=== PATIENT | male | born 1975 | race Caucasian/White ===

== ENCOUNTER 2016-09-27 04:40 | Emergency (ER) | payer MEDICAID, OTHER ==
[~2016-09-27] VITALS: Ht 167.6 cm; Wt 98.0 kg
[2016-09-27 04:44] VITALS: Ht 167.6 cm; Wt 98.0 kg
[2016-09-27] MEDS ORDERED: SOD CHLORIDE 0.9% 500 ML IV STA (06:24)
[2016-09-27] MEDS ORDERED: BELLADONNA/PHENOBARBITAL TAB PO STA (06:24)
[2016-09-27] MEDS ORDERED: FAMOTIDINE 20 MG INJ IV STA (06:24)
[2016-09-27] MEDS ORDERED: ONDANSETRON 4 MG INJ IV STA (06:24)
[2016-09-27] MEDS ORDERED: LIDOCAINE/MYLANTA 40 ML BTL PO STA (06:24)
[2016-09-27] MEDS ORDERED: morphine 4 MG/ML VIAL IV STA (06:24)
[2016-09-27 07:00] LABS: BASOPHIL # 0.1 10^3/ul (0.0-0.1); BASOPHILS % 0.5 % (0.0-2.0); EOSINOPHILS # 0.2 10^3/ul (0.0-0.5); EOSINOPHILS % 1.4 % (0.0-7.0); HEMATOCRIT 42.5 % (42.0-52.0); HEMOGLOBIN 14.7 g/dl (14.0-18.0); LYMPHOCYTES # 2.6 10^3/ul (0.8-2.9); LYMPHOCYTES % 23.2 % (15.0-51.0); MEAN CORPUSCULAR HEMOGLOBIN 29.9 pg (29.0-33.0); MEAN CORPUSCULAR HGB CONC 34.6 g/dl (32.0-37.0); MEAN CORPUSCULAR VOLUME 86.6 fl (82.0-101.0); MEAN PLATELET VOLUME 7.4 fl (7.4-10.4); MONOCYTES % 8.7 % (0.0-11.0); NEUTROPHIL # 7.3 10^3/ul (1.6-7.5); NEUTROPHILS % 66.2 % (39.0-77.0); PLATELET COUNT 329 10^3/UL (140-440); RED BLOOD COUNT 4.91 10^6/ul (4.70-6.10); RED CELL DISTRIBUTION WIDTH 13.4 % (11.5-14.5); UNCORRECTED WBC 11.1 10^3/ul (4.8-10.8); WHITE BLOOD COUNT 11.1 10^3/ul (4.8-10.8)
[2016-09-27 07:01] LABS: CONDITION 1
[2016-09-27 07:06] LABS: ALBUMIN 4.4 g/dl (3.3-4.9)
[2016-09-27 07:07] LABS: POTASSIUM 3.9 mmol/L (3.5-5.1)
[2016-09-27 07:09] LABS: ALBUMIN/GLOBULIN RATIO 1.25; BILIRUBIN,INDIRECT 0.2 mg/dl (0-1.1); BILIRUBIN,TOTAL 0.2 mg/dl (0.2-1.3); CREATININE 0.79 mg/dl (0.61-1.24); TOTAL PROTEIN 7.9 g/dl (6.1-8.1)
--- NOTE | 2016-09-27 07:22 | RADRPT ---
PROCEDURE: Abdominal ultrasound, limited. CLINICAL INDICATION: Abdominal pain. TECHNIQUE: Multiple real-time images were acquired of the patient's right upper abdomen utilizing a high resolution transducer. COMPARISON: None FINDINGS: The liver demonstrates normal echogenicity and size measuring 15.8 cm. There is no focal mass or in trahepatic biliary ductal dilatation. The portal vein is patent. The gallbladder is not distended. There is a 1.5 cm stone within the gallbladder neck. There is trace pericholecystic fluid. There is no gallbladder wall thickening. The common bile duct measures 5.4 mm in maximal dimension. The visualized portions of the pancreas are unremarkable. The pancreas is partially obscured by overly ing bowel gas. No free fluid is identified. The right kidney is normal size and echogenicity measuring 10.3 cm. There is no focal renal mass or echogenic calculus identified. There is no obstructive uropathy. IMPRESSION: Cholelithiasis and trace pericholecystic fluid. There is no gallbladder wall thickening. Pancreas partially obscured by overlying bowel gas. .Fabián Rebollar MD, MD Date Time Electronically viewed and signed by .Fabián Rebollar MD, MD on 09/27/2016 07:22 .T/
[2016-09-27] MEDS ORDERED: HYDR-902 PO (07:38)
[2016-09-27] MEDS ORDERED: OMEP20CA16 PO (07:38)
[2016-09-27] MEDS ORDERED: ONDA4TAB14 PO (07:38)
--- NOTE | 2016-09-27 07:44 | ERD ---
ER Documentation Chief Complaint Date/Time DATE: 09/27/16 TIME: 07:40 Chief Complaint upper abd pain radaiting to right back since 6 hours ago HPI 41-year-old male no past medical history. Family acting as an translator interpreter. The patient describes epigastric abdominal pain radiating to the back for approximately 6 hours. The patient had a large slice of pizza just before going to bed. The patient denies any nausea vomiting diarrhea, no chest pain or shortness of breath. Patient describes the pain as sharp, cramping and burning and approximately 3-10. ROS All systems reviewed and are negative except as per history of present illness. Medications Home Meds Active Scripts Ondansetron (Ondansetron Odt) 4 Mg Tab.rapdis, 4 MG PO Q6H Y for NAUSEA AND/OR VOMITING, #30 TAB Prov:MIKE VARELA MD 09/27/16 Hydrocodone/Acetaminophen (Barronett 10-325 Tablet) 1 Each Tablet, 1 TAB PO Q6H Y for PAIN, #7 TAB Prov:MIKE VARELA MD 09/27/16 Omeprazole* (Omeprazole*) 20 Mg Capsule.dr, 20 MG PO DAILY for 30 Days Prov:MIKE VARELA MD 09/27/16 Allergies Allergies: Coded Allergies: No Known Allergy (Unverified , 09/27/16) FmHx Family History: No diabetes Physical Exam Vitals Vital Signs Date Time Temp Pulse Resp B/P Pulse Ox O2 Delivery O2 Flow Rate FiO2 09/27/16 04:44 97.3 66 20 123/87 98 Physical Exam General: Well developed, well nourished, no acute distress Head: Normocephalic, atraumatic. Eyes: Pupils equally reactive, EOM intact ENT: Moist mucous membranes Neck: Supple, no lymphadenopathy Respiratory: Lungs clear bilaterally, no distress Cardiovascular: RRR, no murmurs, rubs, or gallops Abdominal: Soft, mild soft tissue tenderness to the epigastrium without rebound or guarding, negative Sanford sign, no pulsatile mass : Deferred MSK: No edema, no unilateral swelling, 5/5 strength Neurologic: Alert and oriented, moving all extremities, normal speech, no focal weakness, no cerebellar signs Skin: No rash Psych: Normal mood Result Diagram: 1/7/17 0628 1/7/17 0628 Results 24 hrs Laboratory Tests Test 09/27/16 06:28 Alanine Aminotransferase (ALT/SGPT) 70IU/L Albumin 4.4g/dl Albumin/Globulin Ratio 1.25 Alkaline Phosphatase 94IU/L Anion Gap 18 Aspartate Amino Transf (AST/SGOT) 38IU/L Basophils # 0.110^3/ul Basophils % 0.5% Blood Urea Nitrogen 16mg/dl Calcium Level 9.0mg/dl Carbon Dioxide Level 29mmol/L Chloride Level 100mmol/L Creatinine 0.79mg/dl Direct Bilirubin 0.00mg/dl Eosinophils # 0.210^3/ul Eosinophils % 1.4% Globulin 3.50g/dl Glucose Level 99mg/dl Hematocrit 42.5% Hemoglobin 14.7g/dl Indirect Bilirubin 0.2mg/dl Lipase 79U/L Lymphocytes # 2.610^3/ul Lymphocytes % 23.2% Mean Corpuscular Hemoglobin 29.9pg Mean Corpuscular Hemoglobin Concent 34.6g/dl Mean Corpuscular Volume 86.6fl Mean Platelet Volume 7.4fl Monocytes # 1.010^3/ul Monocytes % 8.7% Neutrophils # 7.310^3/ul Neutrophils % 66.2% Nucleated Red Blood Cells # 0.010^3/ul Nucleated Red Blood Cells % 0.0/100WBC Platelet Count 48047^3/UL Potassium Level 3.9mmol/L Red Blood Count 4.9110^6/ul Red Cell Distribution Width 13.4% Sodium Level 143mmol/L Total Bilirubin 0.2mg/dl Total Protein 7.9g/dl White Blood Count 11.110^3/ul Current Medications Medications (Trade) Dose Ordered Sig/Debbie Route PRN Reason Start Time Stop Time Status Last Admin Dose Admin Sodium Chloride (NS) 500 ml @ 500 mls/hr Q1H STAT IV 09/27/16 06:24 09/27/16 07:23 DC 09/27/16 06:36 Morphine Sulfate (morphine) 4 mg ONCE STAT IV 09/27/16 06:24 09/27/16 06:25 DC 09/27/16 06:37 Ondansetron HCl (Zofran Inj) 4 mg ONCE STAT IV 09/27/16 06:24 09/27/16 06:25 DC 09/27/16 06:37 Famotidine (Pepcid Iv) 20 mg ONCE STAT IV 09/27/16 06:24 09/27/16 06:25 DC 09/27/16 06:36 Miscellaneous Medication (Gi Cocktail (2)) 40 ml ONCE STAT PO 09/27/16 06:24 09/27/16 06:25 DC 09/27/16 06:37 Belladonna/ Phenobarbital () 2 tab ONCE STAT PO 09/27/16 06:24 09/27/16 06:25 DC 09/27/16 06:37 Procedures/MDM EKG, MONITORS, & DIAGNOSTIC IMAGING: GB US: IMPRESSION: Cholelithiasis and trace pericholecystic fluid. There is no gallbladder wall thickening. Pancreas partially obscured by overlying bowel gas. LAB INTERPRETATION: White count of 11 but no shift, no hepatobiliary obstruction. MEDICAL DECISION MAKING: The patient presents with epigastric abdominal discomfort that appears to be burning. This was after a large fatty food bolus late at night. The patient's presentation is most consistent with gastritis versus peptic ulcer disease versus reflux. No evidence of perforation. No signs or symptoms concerning for ACS. Also consider possible hepatobiliary process. ER COURSE: The patient was given a GI cocktail and morphine with complete resolution of his symptoms. His repeat abdominal exam is benign. The patient has a very subtle white count of 11 but no left shift. No evidence of hepatobiliary obstruction. The patient's gallbladder ultrasound shows mild or trace pericholecystic fluid however the patient has no wall thickening and no other signs or symptoms concerning for acute cholecystitis. His constellation of symptoms could be related to reflux versus peptic ulcer disease versus biliary colic. However, at this time given no fever, very mild white blood cell count of 11, no focal tenderness of the right upper quadrant I do not believe that his symptoms are consistent with acute cholecystitis. I did recommend return to the emergency room for any worsening pain, fevers, jaundice. The patient was also referred to our general surgeons as an outpatient for nonemergent evaluation of possible cholecystectomy. Currently the patient is asymptomatic and resting comfortably he is safe for discharge. I kept the patient and/or family informed of laboratory and diagnostic imaging results throughout the emergency room course. DISPOSITION PLAN: We discussed follow up with the patient's primary care doctor within 24 to 48 hours as needed. We also discussed return to the emergency room for worsening symptoms or worsening condition. Discharge Medications: Barronett, Zofran, Prilosec Departure Diagnosis: Primary Impression: Abdominal pain Abdominal location: epigastric Qualified Code: R10.13 - Epigastric pain Additional Impression: Cholelithiasis Cholelithiasis location: gallbladder Cholecystitis presence: without cholecystitis Biliary obstruction: without biliary obstruction Qualified Code : K80.20 - Calculus of gallbladder without cholecystitis without obstruction Condition: Stable Patient Instructions: Abdominal Pain, Gallstones Referrals: YANETH SANCHEZ MD, KAMBIZ M.D. [facility] () Usted se lynn hecho un examen mdico de control que le indica que no est en larissa condicin que requiera tratamiento urgente en el Departamento de Emergencia. Un estudio ms profundo y el tratamiento de muñoz condicin pueden esperar sin ningn riesgo hasta que usted sea atendida/o en el consultorio de muñoz mdico o larissa cl brinda. Es responsabilidad suya arreglar larissa ca para el seguimiento del essie. MANEJO DE CONDICIONES NO URGENTES EN EL FUTURO 1) Si usted tiene un mdico de atencin primaria: Usted debera llamar a muñoz mdico de atencin primaria antes de venir al departamento de emergencia. Despus de las horas de consultorio, muñoz doctor o muñoz asociado/a est disponible por telfono. El mdico o enfermero de murphy en el servicio telefnico puede asesorarle por juan luis medio para atender el problema, o essie contrario se puede programar larissa ca. 2) Si usted no tiene un mdico de atencin primaria: Llame al mdico o clnica de referencia que aparece abajo nicholas las horas de consultorio para hacer larissa ca para que le vean. CLINICAS: [facility] 881 [phone] [facility] 591 [phone] [facility] 536 [phone] [facility] 238 [phone] [place] [id number] [phone] [facility]. [phone] [address] [facility]. [facility] () Usted se lynn hecho un examen mdico de control que le indica que no est en larissa condicin que requiera tratamiento urgente en el Departamento de Emergencia. Un estudio ms profundo y el tratamiento de muñoz condicin pueden esperar sin ningn riesgo hasta que usted sea atendida/o en el consultorio de muñoz mdico o larissa cl brinda. Es responsabilidad suya arreglar larissa ca para el seguimiento del essie. MANEJO DE CONDICIONES NO URGENTES EN EL FUTURO 1) Si usted tiene un mdico de atencin primaria: Usted debera llamar a muñoz mdico de atencin primaria antes de venir al departamento de emergencia. Despus de las horas de consultorio, muñoz doctor o muñoz asociado/a est disponible por telfono. El mdico o enfermero de murphy en el servicio telefnico puede asesorarle por juan luis medio para atender el problema, o essie contrario se puede programar larissa ca. 2) Si usted no tiene un mdico de atencin primaria: Llame al mdico o condado institucions de referencia que aparece abajo nicholas las horas de consultorio para hacer larissa ca para que le vean. SI USTED NO PUEDE PAGAR PARA CIARAN UN MEDICO puede ir a: [facility] [address] [place] [address] [facility] [address] [place] [address] [facility] [address] [place] [address] PARA [facility] [address] [place] [address] Additional Instructions: Llame al doctor MAANA y shaw larissa [place] PARA DENTRO DE 2-3 NEW.Dgale a la secretaria que nosotros le instruimos hacer esta ca.Avise o llame si muñoz condicin se empeora antes de la ca. Regresa aqui si peor o no mejor. MIKE VARELA MD Sep 27, 2016 07:43
== END 2016-09-27 07:46 | disposition home or self-care (01) ==
LOC: E/R 04:40
DX: R10.13 Epigastric pain (principal); K80.20 Calculus of gallbladder without cholecystitis without obstruction
CPT/HCPCS: 76705; 80053; 83690; 85025; J2270; J2405; J7040; Z7610; 36415; 96374; 96375